=== PATIENT | female | born 2000 | race Hispanic/Latino ===

== ENCOUNTER 2019-01-19 23:54 | Emergency (ER) | payer BC ==
[~2019-01-19] VITALS: Ht 162.6 cm; Wt 89.0 kg
[~2019-01-19 23:54] MED LIST: DENIES CURRENT MEDS; MOTRIN400 MG PO
[2019-01-20] MEDS ORDERED: CORTISPORIN OTI10 M2 AU (01:36)
[2019-01-20] MEDS ORDERED: AUGMENTIN500TAB PO (01:36)
[2019-01-20 02:30] VITALS: BP 121/70
== END 2019-01-20 02:32 | disposition home or self-care (01) | DRG 153 ==
LOC: ED 23:54
DX: H66.92 Otitis media, unspecified, left ear (principal); J32.9 Chronic sinusitis, unspecified

== ENCOUNTER 2022-07-28 16:00 | Emergency (ER) | payer SELFPAY ==
[~2022-07-28] VITALS: Ht 162.6 cm; Wt 104.3 kg
[~2022-07-28 16:00] MED LIST changes: +AUGMENTIN500TAB PO; +CORTISPORIN OTI10 M2 AU
[2022-07-28 16:14] VITALS: BP 101/74
[2022-07-28 16:30] VITALS: BP 109/67
[2022-07-28 16:40] LABS: BASO% 0.2 % (0-3); IMMATURE GRANULOCYTES 0.2 % (0.0-5.0); LYMPH% 24.9 % (15-41); MEAN CELL VOLUME 93.6 fL CALC (80.0-100.0); MEAN CORPUSCULAR HGB 29.4 pG CALC (26.0-32.0); MEAN CORPUSCULAR HGB CONC 31.4 g/dL CAL (32.0-36.0); MONO% 6.8 % (2-13); NEUT# 8.04 thou/uL (2.00-7.15); NEUT% 66.9 % (42-76); RED BLOOD COUNT 3.13 mill/uL (4.20-5.60)
[2022-07-28 16:41] LABS: HEMOGLOBIN 9.2 g/dl (12.0-16.0)
[2022-07-28 16:42] LABS: HEMATOCRIT 29.3 % (37.0-47.0)
[2022-07-28 16:49] LABS: ALBUMIN 4.5 g/dL (3.2-5.0); ALKALINE PHOSPHATASE 68 u/l (38-126); ANION GAP 14 (6-22 (CALC)); BILIRUBIN, TOTAL 0.2 mg/dL (0.02-1.3); BUN 12 mg/dL (7-17); BUN/CREATININE RATIO 14 (12-20 (CALC)); CARBON DIOXIDE 24 mmol/l (22-30); CHLORIDE 105 mmol/l (95-108); CREATININE 0.9 mg/dL (0.5-1.0); GFR FOR AFR.AMER. > 60 ML/MIN (>=60 (CALC)); GFR OTHER RACES > 60 ML/MIN (>=60 (CALC)); POTASSIUM 3.5 mmol/l (3.5-5.1); SGOT/AST 68 u/l (14-36); SODIUM 139 mmol/l (137-146); TOTAL PROTEIN 7.9 g/dL (6.3-8.2)
[2022-07-28 17:00] VITALS: BP 109/67
[2022-07-28 17:30] VITALS: BP 95/69
[2022-07-28 17:51] LABS: URINE BILIRUBIN - DIPSTICK NEGATIVE (NEGATIVE); URINE BLOOD DIPSTICK MODERATE (NEGATIVE); URINE COLOR YELLOW; URINE GLUCOSE - DIPSTICK NEGATIVE (NEGATIVE); URINE KETONE NEGATIVE (NEGATIVE); URINE LEUK ESTERASE NEGATIVE (NEGATIVE); URINE PROTEIN - DIPSTICK NEGATIVE (NEG-TRACE); URINE SPECIFIC GRAVITY >=1.030
[2022-07-28 17:59] LABS: URINE NITRITE - DIPSTICK NEGATIVE (Negative)
[2022-07-28 18:04] LABS: URINE SQUAMOUS EPITHELIAL CELL FEW EPI/hpf (0-FEW); URINE WBC 0-2 WBC/hpf (0-5)
[2022-07-28] MEDS ORDERED: ZOFRAN4 MG/TAB PO (18:11)
[2022-07-28 18:19] VITALS: BP 95/69
== END 2022-07-28 18:23 | disposition home or self-care (01) | DRG 948 ==
LOC: ED 16:00
PROVIDERS: Family Medicine
DX: R53.83 Other fatigue (principal); D64.9 Anemia, unspecified; Z20.822 Contact with and (suspected) exposure to COVID-19

== ENCOUNTER 2022-08-01 16:59 | Emergency (ER) | payer SELFPAY ==
[~2022-08-01] VITALS: Ht 162.6 cm; Wt 100.0 kg
[~2022-08-01 16:59] MED LIST changes: +ZOFRAN4 MG/TAB PO
[2022-08-01] MEDS ORDERED: METFORMIN HCL500 M1 PO (17:12)
[2022-08-01] MEDS ORDERED: IRON (FERROUS S50 MG PO (17:12)
[2022-08-01 17:34] LABS: BASO% 0.3 % (0-3); EOS% 2.2 % (0-8); HEMATOCRIT 29.9 % (37.0-47.0); HEMOGLOBIN 9.3 g/dl (12.0-16.0); IMMATURE GRANULOCYTES 0.2 % (0.0-5.0); LYMPH% 34.7 % (15-41); MEAN CELL VOLUME 92.9 fL CALC (80.0-100.0); MEAN CORPUSCULAR HGB 28.9 pG CALC (26.0-32.0); MEAN CORPUSCULAR HGB CONC 31.1 g/dL CAL (32.0-36.0); MONO% 6.6 % (2-13); NEUT# 5.81 thou/uL (2.00-7.15); RED BLOOD COUNT 3.22 mill/uL (4.20-5.60); RED CELL DISTRI WIDTH 13.4 % (11.5-15.5)
[2022-08-01 17:53] LABS: ALKALINE PHOSPHATASE 63 u/l (38-126); ANION GAP 17 (6-22 (CALC)); BUN 10 mg/dL (7-17); BUN/CREATININE RATIO 16 (12-20 (CALC)); CARBON DIOXIDE 23 mmol/l (22-30); CHLORIDE 104 mmol/l (95-108); CREATININE 0.6 mg/dL (0.5-1.0); GFR FOR AFR.AMER. > 60 ML/MIN (>=60 (CALC)); GFR OTHER RACES > 60 ML/MIN (>=60 (CALC)); POTASSIUM 4.2 mmol/l (3.5-5.1); SGOT/AST 83 u/l (14-36); SODIUM 140 mmol/l (137-146); TOTAL PROTEIN 8.2 g/dL (6.3-8.2)
[2022-08-01 17:55] LABS: BILIRUBIN, TOTAL 0.6 mg/dL (0.02-1.3)
[2022-08-01 18:27] VITALS: BP 115/66
== END 2022-08-01 18:29 | disposition home or self-care (01) | DRG 812 ==
LOC: ED 16:59
PROVIDERS: Family Medicine
DX: D64.9 Anemia, unspecified (principal); N93.9 Abnormal uterine and vaginal bleeding, unspecified